=== PATIENT | female | born 1960 | race Native Hawaiian/Other Pacific Islander ===

== ENCOUNTER 2017-05-21 11:30 | Outpatient (CLI) | payer OTHER | END 2017-05-21 12:30 | disposition home or self-care (01) | LOC: RAD 11:30 | DX: M79.642 Pain in left hand (principal) ==

== ENCOUNTER 2017-08-19 10:30 | Inpatient (IN) | payer OTHER ==
[~2017-08-19] VITALS: Ht 162.6 cm; Wt 140.7 kg
[2017-08-19 18:32] VITALS: BP 123/63; TEMP 97.8; Ht 162.6 cm; Wt 140.7 kg
[2017-08-19 20:00] VITALS: BP 103/58; TEMP 99.2
[2017-08-19 22:04] LABS: PLATELET COUNT 311 K/uL (152-353)
[2017-08-19 22:13] LABS: POTASSIUM 3.9 mmol/L (3.6-5.2)
[2017-08-20] VITALS: BP 107/60; TEMP 98.5
[2017-08-20 04:00] VITALS: BP 106/57; TEMP 98.7
[2017-08-20 06:11] LABS: PLATELET COUNT 281 K/uL (152-353)
[2017-08-20 06:14] LABS: POTASSIUM 3.8 mmol/L (3.6-5.2)
[2017-08-20 06:48] LABS: PARTIAL THROMBOPLASTIN TIME 41.4 SECONDS (24.5-33.6)
[2017-08-20 09:23] VITALS: BP 113/66; TEMP 98.6
[2017-08-20 14:36] VITALS: BP 112/57; TEMP 98.8
[2017-08-20] MEDS ORDERED: AMIT25TA22 PO (15:34)
[2017-08-20] MEDS ORDERED: CITA20TA2 PO (15:35)
[2017-08-20] MEDS ORDERED: WARF5TAB6 PO (15:36)
[2017-08-20] MEDS ORDERED: LISI20TA11 PO (15:37)
[2017-08-20] MEDS ORDERED: MOBIC15 MG PO (15:38)
[2017-08-20] MEDS ORDERED: OMEPRAZOLE20 M1 PO (15:38)
[2017-08-20] MEDS ORDERED: TRAM50TA PO (15:39)
[2017-08-20] MEDS ORDERED: WARF7.5T5 PO (15:45)
[2017-08-20 16:00] VITALS: BP 125/58; TEMP 99.2
[2017-08-20 20:00] VITALS: BP 115/65; TEMP 99.1
[2017-08-21] VITALS: BP 107/65; TEMP 99.2
[2017-08-21 04:00] VITALS: BP 133/89; TEMP 98.2
[2017-08-21 05:16] LABS: PLATELET COUNT 274 K/uL (152-353)
[2017-08-21 05:50] LABS: PARTIAL THROMBOPLASTIN TIME 29.2 SECONDS (24.5-33.6)
[2017-08-21 05:57] LABS: POTASSIUM 4.3 mmol/L (3.6-5.2)
[2017-08-21 08:00] VITALS: BP 107/58; TEMP 98.8
[2017-08-21 12:00] VITALS: BP 112/75; TEMP 98.4
[2017-08-21 16:00] VITALS: BP 120/60; TEMP 98.7
[2017-08-21 20:00] VITALS: BP 123/75; TEMP 98.9
[2017-08-22] VITALS (7 sets, daily range): BP systolic 95–126; BP diastolic 60–89; TEMP 97.6–98.6
[2017-08-22 06:54] LABS: PLATELET COUNT 327 K/uL (152-353)
[2017-08-22 07:10] LABS: POTASSIUM 4.1 mmol/L (3.6-5.2)
[2017-08-22 07:22] LABS: PARTIAL THROMBOPLASTIN TIME 38.1 SECONDS (24.5-33.6)
[2017-08-23 03:57] VITALS: BP 97/63; TEMP 98.1
[2017-08-23 04:49] LABS: PLATELET COUNT 351 K/uL (152-353)
[2017-08-23 05:06] LABS: POTASSIUM 4.1 mmol/L (3.6-5.2)
[2017-08-23 05:11] LABS: PARTIAL THROMBOPLASTIN TIME 40.1 SECONDS (24.5-33.6)
[2017-08-23 08:21] VITALS: BP 99/62; TEMP 97.7
[2017-08-23 11:46] VITALS: BP 105/68; TEMP 98.1
[2017-08-23 16:00] VITALS: BP 94/56; TEMP 98.5
[2017-08-23 19:57] VITALS: BP 105/74; TEMP 99.1
[2017-08-24] VITALS: BP 97/62; TEMP 98.3
[2017-08-24 03:58] VITALS: BP 91/55; TEMP 98.4
[2017-08-24 05:44] LABS: PLATELET COUNT 337 K/uL (152-353)
[2017-08-24 05:54] LABS: POTASSIUM 4.5 mmol/L (3.6-5.2)
[2017-08-24 06:29] LABS: PARTIAL THROMBOPLASTIN TIME 45.1 SECONDS (24.5-33.6)
[2017-08-24 08:00] VITALS: BP 96/59; TEMP 97.8
[2017-08-24 12:00] VITALS: BP 103/59; TEMP 98
[2017-08-24] MEDS ORDERED: 904272561 PO (12:39)
== END 2017-08-24 14:26 | disposition home or self-care (01) | DRG 603 ==
LOC: MED/SURG 10:30
PROVIDERS: ADMIT Family Medicine
DX: L03.113 Cellulitis of right upper limb (principal); I10 Essential (primary) hypertension; M06.80 Other specified rheumatoid arthritis, unspecified site; Z86.718 Personal history of other venous thrombosis and embolism; Z79.01 Long term (current) use of anticoagulants; B95.62 Methicillin resistant Staphylococcus aureus infection as the cause of diseases classified elsewhere
CPT/HCPCS: 36415; 80053; 80202; 85027; 85610; 85730; 87070; 87077; 87185; 87186; 87205; 93005; J3370; Q9963

== ENCOUNTER 2017-09-07 14:06 | Outpatient (CLI) | payer OTHER ==
[~2017-09-07 14:06] MED LIST: 904272561 PO; AMIT25TA22 PO; CITA20TA2 PO; LISI20TA11 PO; MOBIC15 MG PO; OMEPRAZOLE20 M1 PO; TRAM50TA PO; WARF5TAB6 PO; WARF7.5T5 PO
== END 2017-09-07 22:07 | disposition home or self-care (01) ==
LOC: LABW 14:06
DX: Z51.81 Encounter for therapeutic drug level monitoring (principal)
CPT/HCPCS: 36415; 85610

== ENCOUNTER 2017-09-11 13:09 | Outpatient (CLI) | payer OTHER | END 2017-09-11 19:48 | disposition home or self-care (01) | LOC: LABW 13:09 | DX: Z51.81 Encounter for therapeutic drug level monitoring (principal) | CPT/HCPCS: 36415; 85610 ==

== ENCOUNTER 2017-09-18 13:47 | Outpatient (CLI) | payer OTHER | END 2017-09-18 23:18 | disposition home or self-care (01) | LOC: LABW 13:47 | DX: Z79.01 Long term (current) use of anticoagulants (principal); Z51.81 Encounter for therapeutic drug level monitoring | CPT/HCPCS: 36415; 85610 ==

== ENCOUNTER 2017-11-23 14:23 | Outpatient (CLI) | payer OTHER | END 2017-11-23 21:44 | disposition home or self-care (01) | LOC: LABW 14:23 | DX: Z51.81 Encounter for therapeutic drug level monitoring (principal) | CPT/HCPCS: 36415; 85610 ==

== ENCOUNTER 2017-12-04 11:53 | Outpatient (CLI) | payer OTHER | END 2017-12-04 19:24 | disposition home or self-care (01) | LOC: LABW 11:53 | DX: Z51.81 Encounter for therapeutic drug level monitoring (principal) | CPT/HCPCS: 36415; 85610 ==

== ENCOUNTER 2017-12-10 11:16 | Outpatient (CLI) | payer OTHER | END 2017-12-10 23:22 | disposition home or self-care (01) | LOC: LABW 11:16 | DX: Z51.81 Encounter for therapeutic drug level monitoring (principal) | CPT/HCPCS: 36415; 85610 ==

== ENCOUNTER 2017-12-23 15:19 | Outpatient (CLI) | payer OTHER | END 2017-12-23 19:44 | disposition home or self-care (01) | LOC: LABW 15:19 | DX: Z51.81 Encounter for therapeutic drug level monitoring (principal) | CPT/HCPCS: 36415; 85610 ==

== ENCOUNTER 2018-01-04 08:41 | Outpatient (CLI) | payer OTHER | END 2018-01-04 19:52 | disposition home or self-care (01) | LOC: LABW 08:41 | DX: Z51.81 Encounter for therapeutic drug level monitoring (principal) | CPT/HCPCS: 36415; 85610 ==

== ENCOUNTER 2018-02-12 11:52 | Outpatient (CLI) | payer OTHER ==
[2018-02-12 12:29] LABS: PLATELET COUNT 297 K/uL (152-353)
[2018-02-12 12:45] LABS: POTASSIUM 4.7 mmol/L (3.6-5.2)
== END 2018-02-12 19:50 | disposition home or self-care (01) ==
LOC: LABW 11:52
PROVIDERS: Internal Medicine Rheumatology
DX: M05.79 Rheumatoid arthritis with rheumatoid factor of multiple sites without organ or systems involvement (principal); Z79.899 Other long term (current) drug therapy; Z51.81 Encounter for therapeutic drug level monitoring
CPT/HCPCS: 36415; 80053; 85027; 85610

== ENCOUNTER 2018-05-13 13:52 | Outpatient (CLI) | payer OTHER | END 2018-05-13 22:25 | disposition home or self-care (01) | LOC: LABW 13:52 | DX: Z51.81 Encounter for therapeutic drug level monitoring (principal) | CPT/HCPCS: 36415; 85610 ==

== ENCOUNTER 2018-06-16 10:53 | Emergency (ER) | payer OTHER ==
[~2018-06-16] VITALS: Ht 162.6 cm; Wt 135.6 kg
[2018-06-16 11:13] VITALS: TEMP 98
[2018-06-16 13:18] VITALS: BP 143/89
== END 2018-06-16 13:18 | disposition home or self-care (01) ==
LOC: ED 10:53
PROC: 2W3HX1Z Immobilization of Left Thumb using Splint (ICD-10-PCS; principal; 2018-06-16)
DX: S62.512A Displaced fracture of proximal phalanx of left thumb, initial encounter for closed fracture (principal); W01.198A Fall on same level from slipping, tripping and stumbling with subsequent striking against other object, initial encounter; Y92.89 Other specified places as the place of occurrence of the external cause
CPT/HCPCS: 99282

== ENCOUNTER 2018-06-18 13:56 | Outpatient (CLI) | payer OTHER | END 2018-06-18 23:59 | disposition home or self-care (01) | LOC: LABW 13:56 | DX: Z51.81 Encounter for therapeutic drug level monitoring (principal) | CPT/HCPCS: 36415; 85610 ==

== ENCOUNTER 2018-07-21 09:30 | Outpatient (CLI) | payer OTHER | END 2018-07-21 23:44 | disposition home or self-care (01) | LOC: RAD 09:30 → LAB 09:30 → RAD 23:44 | DX: M85.88 Other specified disorders of bone density and structure, other site (principal); Z51.81 Encounter for therapeutic drug level monitoring | CPT/HCPCS: 36415; 85610 ==

== ENCOUNTER 2018-09-08 17:00 | Emergency (ER) | payer OTHER ==
[~2018-09-08] VITALS: Ht 162.6 cm; Wt 139.3 kg
[2018-09-08 19:50] VITALS: BP 152/84; TEMP 97.6
== END 2018-09-08 19:50 | disposition home or self-care (01) ==
LOC: ED 17:00
PROC: 2W3HX1Z Immobilization of Left Thumb using Splint (ICD-10-PCS; principal; 2018-09-08)
DX: S62.522A Displaced fracture of distal phalanx of left thumb, initial encounter for closed fracture (principal); S80.02XA Contusion of left knee, initial encounter; Z96.653 Presence of artificial knee joint, bilateral; W18.39XA Other fall on same level, initial encounter; Y92.89 Other specified places as the place of occurrence of the external cause
CPT/HCPCS: 99283

== ENCOUNTER 2018-09-09 14:43 | Outpatient (CLI) | payer OTHER | END 2018-09-09 23:46 | disposition home or self-care (01) | LOC: LABW 14:43 | DX: Z51.81 Encounter for therapeutic drug level monitoring (principal) | CPT/HCPCS: 36415; 85610 ==

== ENCOUNTER 2018-10-26 11:03 | Outpatient (CLI) | payer OTHER | END 2018-10-26 22:31 | disposition home or self-care (01) | LOC: LABW 11:03 | DX: Z51.81 Encounter for therapeutic drug level monitoring (principal) | CPT/HCPCS: 36415; 85610 ==

== ENCOUNTER 2019-01-31 15:35 | Outpatient (CLI) | payer OTHER | END 2019-01-31 20:18 | disposition home or self-care (01) | LOC: LABW 15:35 | DX: Z51.81 Encounter for therapeutic drug level monitoring (principal) | CPT/HCPCS: 36415; 85610 ==

== ENCOUNTER 2020-03-07 15:59 | Outpatient (CLI) | payer OTHER | END 2020-03-07 20:04 | disposition home or self-care (01) | LOC: RAD 15:59 | PROVIDERS: ATTEND Registered Nurse | DX: R07.81 Pleurodynia (principal) ==

== ENCOUNTER 2020-11-01 09:09 | Outpatient (CLI) | payer OTHER | END 2020-11-01 22:04 | disposition home or self-care (01) | LOC: RAD 09:09 | PROVIDERS: ATTEND Nurse Practitioner Family | DX: E55.9 Vitamin D deficiency, unspecified (principal); E56.8 Deficiency of other vitamins; M05.79 Rheumatoid arthritis with rheumatoid factor of multiple sites without organ or systems involvement; M54.5 Low back pain; M85.88 Other specified disorders of bone density and structure, other site ==

== ENCOUNTER 2021-09-23 12:53 | Emergency (ER) | payer OTHER ==
[~2021-09-23] VITALS: Ht 162.6 cm; Wt 139.3 kg
[2021-09-23 13:01] VITALS: TEMP 97.6
[2021-09-23 14:01] VITALS: BP 128/60
== END 2021-09-23 14:35 | disposition home or self-care (01) ==
LOC: ED 12:53
DX: S00.03XA Contusion of scalp, initial encounter (principal); S16.1XXA Strain of muscle, fascia and tendon at neck level, initial encounter; W01.198A Fall on same level from slipping, tripping and stumbling with subsequent striking against other object, initial encounter; Y92.89 Other specified places as the place of occurrence of the external cause
CPT/HCPCS: 99283

== ENCOUNTER 2022-10-08 14:20 | Emergency (ER) | payer OTHER ==
[~2022-10-08] VITALS: Ht 162.6 cm; Wt 117.0 kg
[2022-10-08 14:20] VITALS: BP 119/67; TEMP 98.8
== END 2022-10-08 17:03 | disposition short-term general hospital (02) ==
LOC: ED 14:20
PROC: 2W3RX1Z Immobilization of Left Lower Leg using Splint (ICD-10-PCS; principal; 2022-10-08)
DX: S82.892A Other fracture of left lower leg, initial encounter for closed fracture (principal); W19.XXXA Unspecified fall, initial encounter
CPT/HCPCS: 96374; 99284; J1885

== ENCOUNTER 2022-12-05 15:06 | Outpatient (CLI) | payer OTHER ==
[~2022-12-05] VITALS: Ht 154.9 cm; Wt 68.0 kg
[2022-12-05 15:10] VITALS: BP 140/68; TEMP 98.7
[2022-12-05 16:56] VITALS: BP 138/72; TEMP 98
== END 2022-12-05 20:46 | disposition home or self-care (01) ==
LOC: INF 15:06
PROVIDERS: ATTEND Internal Medicine Endocrinology, Diabetes & Metabolism
DX: M86.8X8 Other osteomyelitis, other site (principal)
CPT/HCPCS: 96365; 96366; J3370

== ENCOUNTER 2022-12-06 14:49 | Outpatient (CLI) | payer OTHER ==
[2022-12-06 15:00] VITALS: BP 119/68; TEMP 98.3
[2022-12-06 16:10] VITALS: BP 122/78; TEMP 98
== END 2022-12-06 23:55 | disposition home or self-care (01) ==
LOC: INF 14:49
PROVIDERS: ATTEND Internal Medicine Endocrinology, Diabetes & Metabolism
DX: M86.8X8 Other osteomyelitis, other site (principal)
CPT/HCPCS: 96365; 96366; J3370

== ENCOUNTER 2022-12-07 14:53 | Outpatient (CLI) | payer OTHER ==
[~2022-12-07] VITALS: Ht 160 cm; Wt 115.2 kg
[2022-12-07 15:00] VITALS: BP 116/61; TEMP 97.7
== END 2022-12-07 23:02 | disposition home or self-care (01) ==
LOC: INF 14:53
PROVIDERS: ATTEND Internal Medicine Endocrinology, Diabetes & Metabolism
DX: M86.8X8 Other osteomyelitis, other site (principal)
CPT/HCPCS: 96365; 96366; J3370

== ENCOUNTER 2022-12-08 15:05 | Outpatient (CLI) | payer OTHER ==
[2022-12-08 15:09] VITALS: BP 124/72; TEMP 98.4
== END 2022-12-08 23:54 | disposition home or self-care (01) ==
LOC: INF 15:05
PROVIDERS: ATTEND Internal Medicine Endocrinology, Diabetes & Metabolism
DX: M86.8X8 Other osteomyelitis, other site (principal)
CPT/HCPCS: 36415; 80202; 96365; 96366

== ENCOUNTER 2022-12-09 14:59 | Outpatient (CLI) | payer OTHER ==
[~2022-12-09] VITALS: Ht 165.1 cm; Wt 68.0 kg
[2022-12-09 15:10] VITALS: BP 112/81; TEMP 98.6
[2022-12-09 15:14] LABS: PLATELET COUNT 155 K/uL (152-353)
[2022-12-09 15:18] LABS: POTASSIUM 3.3 mmol/L (3.6-5.2)
== END 2022-12-09 22:08 | disposition home or self-care (01) ==
LOC: INF 14:59
PROVIDERS: ATTEND Internal Medicine Endocrinology, Diabetes & Metabolism
DX: M86.8X8 Other osteomyelitis, other site (principal)
CPT/HCPCS: 36415; 80048; 80202; 85027; 86140; J3370

== ENCOUNTER 2022-12-10 15:00 | Outpatient (CLI) | payer OTHER ==
[~2022-12-10] VITALS: Ht 165.1 cm; Wt 88.5 kg
[2022-12-10 15:05] VITALS: BP 116/75; TEMP 98.3
== END 2022-12-10 19:09 | disposition home or self-care (01) ==
LOC: INF 15:00
PROVIDERS: ATTEND Internal Medicine
DX: M86.8X8 Other osteomyelitis, other site (principal)
CPT/HCPCS: 96365; 96366; J3370

== ENCOUNTER 2022-12-11 14:55 | Outpatient (CLI) | payer OTHER ==
[~2022-12-11] VITALS: Ht 182.9 cm; Wt 88.5 kg
[2022-12-11 15:00] VITALS: BP 122/73; TEMP 98.6
[2022-12-11 15:21] LABS: PLATELET COUNT 155 K/uL (152-353)
[2022-12-11 15:32] LABS: POTASSIUM 3.8 mmol/L (3.6-5.2)
== END 2022-12-11 19:31 | disposition home or self-care (01) ==
LOC: INF 14:55
PROVIDERS: ATTEND Internal Medicine
DX: M86.8X8 Other osteomyelitis, other site (principal)
CPT/HCPCS: 36591; 80048; 85027; 86140; 96365; 96366; 99211; J3370

== ENCOUNTER 2022-12-12 15:46 | Outpatient (CLI) | payer OTHER ==
[2022-12-12 16:12] VITALS: BP 111/61; TEMP 98.4
== END 2022-12-12 19:12 | disposition home or self-care (01) ==
LOC: INF 15:46
PROVIDERS: ATTEND Internal Medicine
DX: M86.8X8 Other osteomyelitis, other site (principal)
CPT/HCPCS: 96365; 96366; J3370

== ENCOUNTER 2022-12-13 14:55 | Outpatient (CLI) | payer OTHER ==
[~2022-12-13] VITALS: Ht 182.9 cm; Wt 88.5 kg
[2022-12-13 15:30] VITALS: BP 99/60; TEMP 98.4
[2022-12-13 16:30] VITALS: BP 103/64; TEMP 98.4
== END 2022-12-13 23:21 | disposition home or self-care (01) ==
LOC: INF 14:55
PROVIDERS: ATTEND Internal Medicine
DX: M86.8X8 Other osteomyelitis, other site (principal)
CPT/HCPCS: 96365

== ENCOUNTER 2022-12-14 15:03 | Outpatient (CLI) | payer OTHER ==
[~2022-12-14] VITALS: Ht 30.5 cm; Wt 0.5 kg
[2022-12-14 15:00] VITALS: BP 109/57; TEMP 98.2
[2022-12-14 16:30] VITALS: BP 124/86; TEMP 98.2
== END 2022-12-14 22:19 | disposition home or self-care (01) ==
LOC: INF 15:03
PROVIDERS: ATTEND Internal Medicine
DX: M86.8X8 Other osteomyelitis, other site (principal)
CPT/HCPCS: 96365; 96366; J3370

== ENCOUNTER 2022-12-15 14:59 | Outpatient (CLI) | payer OTHER ==
[~2022-12-15] VITALS: Ht 182.9 cm; Wt 88.5 kg
[2022-12-15 15:08] VITALS: BP 123/75; TEMP 98.4
== END 2022-12-15 19:10 | disposition home or self-care (01) ==
LOC: INF 14:59
PROVIDERS: ATTEND Internal Medicine
DX: M86.8X8 Other osteomyelitis, other site (principal)
CPT/HCPCS: 96365; 96366; J3370

== ENCOUNTER 2022-12-16 14:52 | Outpatient (CLI) | payer OTHER ==
[~2022-12-16] VITALS: Ht 165.1 cm; Wt 68.0 kg
[2022-12-16 14:59] VITALS: BP 116/60; TEMP 98.4
== END 2022-12-16 19:01 | disposition home or self-care (01) ==
LOC: INF 14:52
PROVIDERS: ATTEND Internal Medicine
DX: M86.8X8 Other osteomyelitis, other site (principal)
CPT/HCPCS: 80202; 96365; 96366; J3370

== ENCOUNTER 2022-12-17 14:21 | Outpatient (CLI) | payer OTHER ==
[~2022-12-17] VITALS: Ht 182.9 cm; Wt 88.5 kg
[2022-12-17 15:00] VITALS: BP 137/68; TEMP 98.4
[2022-12-17 16:18] VITALS: BP 133/67; TEMP 98.2
== END 2022-12-17 19:20 | disposition home or self-care (01) ==
LOC: INF 14:21
PROVIDERS: ATTEND Internal Medicine Endocrinology, Diabetes & Metabolism
DX: M86.8X8 Other osteomyelitis, other site (principal)
CPT/HCPCS: 96365; 96366; J3370

== ENCOUNTER 2022-12-18 14:55 | Outpatient (CLI) | payer OTHER ==
[~2022-12-18] VITALS: Ht 165.1 cm; Wt 68.0 kg
[2022-12-18 15:00] VITALS: BP 132/74; TEMP 98.3
== END 2022-12-18 18:53 | disposition home or self-care (01) ==
LOC: INF 14:55
PROVIDERS: ATTEND Internal Medicine Endocrinology, Diabetes & Metabolism
DX: M86.8X8 Other osteomyelitis, other site (principal)
CPT/HCPCS: 96365; 96366; J3370

== ENCOUNTER 2022-12-19 15:07 | Outpatient (CLI) | payer OTHER ==
[~2022-12-19] VITALS: Ht 182.9 cm; Wt 88.5 kg
[2022-12-19 15:10] VITALS: BP 129/68; TEMP 98.5
[2022-12-19 17:03] VITALS: BP 130/84; TEMP 98.7
== END 2022-12-19 19:08 | disposition home or self-care (01) ==
LOC: INF 15:07
PROVIDERS: ATTEND Internal Medicine Endocrinology, Diabetes & Metabolism
DX: M86.8X8 Other osteomyelitis, other site (principal)
CPT/HCPCS: 96365; 96366; J3370

== ENCOUNTER 2022-12-20 15:01 | Outpatient (CLI) | payer OTHER ==
[~2022-12-20] VITALS: Ht 182.9 cm; Wt 88.5 kg
[2022-12-20 15:30] VITALS: BP 122/59; TEMP 98.1
[2022-12-20 16:09] LABS: PLATELET COUNT 135 K/uL (152-353)
[2022-12-20 16:18] LABS: POTASSIUM 3.3 mmol/L (3.6-5.2)
== END 2022-12-20 23:16 | disposition home or self-care (01) ==
LOC: INF 15:01
PROVIDERS: ATTEND Internal Medicine Endocrinology, Diabetes & Metabolism
DX: M86.8X8 Other osteomyelitis, other site (principal)
CPT/HCPCS: 80048; 80202; 85027; 96365; 96366; J3370

== ENCOUNTER 2022-12-21 14:46 | Outpatient (CLI) | payer OTHER ==
[~2022-12-21] VITALS: Ht 182.9 cm; Wt 88.5 kg
[2022-12-21 14:57] VITALS: BP 135/78; TEMP 98.1
== END 2022-12-21 22:01 | disposition home or self-care (01) ==
LOC: INF 14:46
PROVIDERS: ATTEND Internal Medicine Endocrinology, Diabetes & Metabolism
DX: M86.8X8 Other osteomyelitis, other site (principal)
CPT/HCPCS: J3370

== ENCOUNTER 2022-12-22 14:58 | Outpatient (CLI) | payer OTHER ==
[~2022-12-22] VITALS: Ht 182.9 cm; Wt 88.5 kg
[2022-12-22 15:01] VITALS: BP 153/82; TEMP 98.3
== END 2022-12-22 23:00 | disposition home or self-care (01) ==
LOC: INF 14:58
PROVIDERS: ATTEND Internal Medicine Endocrinology, Diabetes & Metabolism
DX: M86.8X8 Other osteomyelitis, other site (principal)
CPT/HCPCS: 96365; 96366; J3370

== ENCOUNTER 2022-12-23 14:48 | Outpatient (CLI) | payer OTHER ==
[~2022-12-23] VITALS: Ht 165.1 cm; Wt 68.0 kg
[2022-12-23 14:52] VITALS: BP 160/76; TEMP 98.8
[2022-12-23 16:37] VITALS: BP 142/77; TEMP 98.1
== END 2022-12-23 23:00 | disposition home or self-care (01) ==
LOC: INF 14:48
PROVIDERS: ATTEND Internal Medicine Endocrinology, Diabetes & Metabolism
DX: M86.8X8 Other osteomyelitis, other site (principal)
CPT/HCPCS: 96365; 96366; J3370

== ENCOUNTER 2022-12-24 14:47 | Outpatient (CLI) | payer OTHER ==
[~2022-12-24] VITALS: Ht 182.9 cm; Wt 88.5 kg
== END 2022-12-24 19:54 | disposition home or self-care (01) ==
LOC: INF 14:47
PROVIDERS: ATTEND Internal Medicine
DX: M86.8X8 Other osteomyelitis, other site (principal)
CPT/HCPCS: 96365; 96366; J3370

== ENCOUNTER 2022-12-25 14:57 | Outpatient (CLI) | payer OTHER ==
[~2022-12-25] VITALS: Ht 165.1 cm; Wt 68.0 kg
[2022-12-25 14:53] VITALS: BP 123/80; TEMP 98.3
[2022-12-25 16:16] LABS: POTASSIUM 4.4 mmol/L (3.6-5.2)
[2022-12-25 16:17] LABS: PLATELET COUNT 152 K/uL (152-353)
== END 2022-12-25 19:40 | disposition home or self-care (01) ==
LOC: INF 14:57
PROVIDERS: ATTEND Internal Medicine
DX: M86.8X8 Other osteomyelitis, other site (principal)
CPT/HCPCS: 36415; 80048; 85027; 86140; 96365; 96366; J3370

== ENCOUNTER 2023-01-06 15:01 | Outpatient (CLI) | payer OTHER ==
[~2023-01-06] VITALS: Ht 182.9 cm; Wt 88.5 kg
== END 2023-01-06 19:41 | disposition home or self-care (01) ==
LOC: INF 15:01
PROVIDERS: ATTEND Internal Medicine Endocrinology, Diabetes & Metabolism
DX: M86.8X8 Other osteomyelitis, other site (principal); A49.02 Methicillin resistant Staphylococcus aureus infection, unspecified site
CPT/HCPCS: 96365; J3370

== ENCOUNTER 2023-01-07 15:07 | Outpatient (CLI) | payer OTHER ==
[~2023-01-07] VITALS: Ht 182.9 cm; Wt 89.4 kg
[2023-01-07 15:20] VITALS: BP 136/71; TEMP 98.3
[2023-01-07 17:15] VITALS: BP 132/68; TEMP 98.6
== END 2023-01-07 19:30 | disposition home or self-care (01) ==
LOC: INF 15:07
PROVIDERS: ATTEND Internal Medicine
DX: M86.8X8 Other osteomyelitis, other site (principal); A49.02 Methicillin resistant Staphylococcus aureus infection, unspecified site
CPT/HCPCS: 96365; J3370

== ENCOUNTER 2023-01-08 15:01 | Outpatient (CLI) | payer OTHER ==
[~2023-01-08] VITALS: Ht 165.1 cm; Wt 68.0 kg
== END 2023-01-08 19:27 | disposition home or self-care (01) ==
LOC: INF 15:01
PROVIDERS: ATTEND Internal Medicine
DX: M86.8X8 Other osteomyelitis, other site (principal)
CPT/HCPCS: 96365; J3370

== ENCOUNTER 2023-01-09 14:41 | Outpatient (CLI) | payer OTHER ==
[~2023-01-09] VITALS: Ht 182.9 cm; Wt 88.5 kg
[2023-01-09 14:57] VITALS: BP 137/70; TEMP 98.2
== END 2023-01-09 19:04 | disposition home or self-care (01) ==
LOC: INF 14:41
PROVIDERS: ATTEND Internal Medicine
DX: M86.8X8 Other osteomyelitis, other site (principal)
CPT/HCPCS: 96365; J3370